=== PATIENT | male | born 1970 | race Caucasian/White ===

== ENCOUNTER 2018-06-23 20:14 | Emergency (ER) | payer SELFPAY ==
[~2018-06-23] VITALS: Ht 162.6 cm; Wt 68.0 kg
[~2018-06-23 20:14] MED LIST: PHEN100C4 PO
--- NOTE | 2018-06-23 20:14 | NUR ---
2013 - Patient to ER chair hallway 2 for evaluation.
--- NOTE | 2018-06-23 20:30 | NUR ---
2030 - ER at bedside examining patient.
[2018-06-23 20:39] VITALS: BP_SYST 110
[2018-06-23 21:45] VITALS: BP_SYST 110
--- NOTE | 2018-06-23 21:45 | NUR ---
2147 - Patient given written and verbal discharge instructions and verbalizes understanding. ER MD discussed with patient the results and treatment provided. Patient in stable condition. ID arm band removed. Rx of tylenol given. Patient educated on pain management and to follow up with PMD. Pain Scale 0. Opportunity for questions provided and answered. Medication side effect fact sheet provided. In custody of [facility]
== END 2018-06-23 21:45 ==
LOC: SED 20:14
DX: S62.327A Displaced fracture of shaft of fifth metacarpal bone, left hand, initial encounter for closed fracture (principal); X58.XXXA Exposure to other specified factors, initial encounter; Y93.89 Activity, other specified; Y92.89 Other specified places as the place of occurrence of the external cause; Y99.8 Other external cause status
CPT/HCPCS: 99283